=== PATIENT | female | born 1930 | race Caucasian/White ===

== ENCOUNTER → 2017-10-21 | Outpatient (CLI) | payer BC, MEDICARE ==
[~2017-10-21] MED LIST: AMLO5TAB2 PO; CALC1CAP3 PO; CHOL3000 PO; HYDR-3240 PO; LISI1TAB5 PO; ONDA4TAB12 PO; SIMV40TA3 PO
[2017-10-21 12:15] LABS: ALBUMIN 3.6 g/dL (3.4-5.0); ANION GAP 8 mmol/L (5-15); CALCIUM 10.5 mg/dL (8.5-10.1); CHLORIDE 107 mmol/L (98-107)
[2017-10-21 12:18] LABS: ALANINE AMINOTRANSFERASE 22 U/L (12-78); ALKALINE PHOSPHATASE 67 U/L (45-117); BILIRUBIN,TOTAL 0.8 mg/dL (0.2-1.0); CREATININE 0.99 mg/dL (0.55-1.02); TOTAL PROTEIN 7.3 g/dL (6.4-8.2)
== END | disposition home or self-care (01) ==
LOC: STAR 10:38
PROVIDERS: ATTEND Surgery
DX: Z01.818 Encounter for other preprocedural examination (principal)
CPT/HCPCS: 36415; 80053; 93005

== ENCOUNTER 2017-10-27 07:13 | Observation (INO) | payer BC, MEDICARE ==
[~2017-10-27] VITALS: Ht 152.4 cm; Wt 54.5 kg
[~2017-10-27 07:13] MED LIST changes: -AMLO5TAB2 PO; +AMLO5TAB7 PO; -HYDR-3240 PO; -ONDA4TAB12 PO
[2017-10-27] MEDS ORDERED: LACTATED RINGERS 1,000 ML IV SCH ×2 (07:46→19:00)
[2017-10-27 07:48] VITALS: BP 134/61
[2017-10-27] MEDS ORDERED: GABAPENTIN 300 MG CAPSULE PO ONE (08:00)
[2017-10-27] MEDS ORDERED: SCOPOLAMINE PATCH, 1.5MG PATCH.TD72 TD ONE (08:00)
[2017-10-27] MEDS ORDERED: ONDANSETRON 2MG/ML, 2ML IVPush ONE (08:00)
[2017-10-27] MEDS ORDERED: ACETAMINOPHEN 500 MG TABLET PO ONE (08:00)
[2017-10-27] MEDS ORDERED: FENTANYL PF 250 MCG/5ML ONE (08:22)
[2017-10-27] MEDS ORDERED: BUPIVACAINE/PF 0.5% ONE (09:01)
[2017-10-27] MEDS ORDERED: ISOSULFAN BLUE 10 MG/ML, 5ML IV ONE (09:01)
[2017-10-27] MEDS ORDERED: EPINEPHRINE 1 MG/ML, 1ML ONE (09:01)
[2017-10-27] MEDS ORDERED: PHENYLEPHRINE 10 MG/ML ONE (09:45)
[2017-10-27] MEDS ORDERED: PROMETHAZINE 25 MG/ML, 1ML IV PRN (10:30)
[2017-10-27] MEDS ORDERED: HYDROmorphone 1 MG/ML, 1ML IV PRN (10:30)
[2017-10-27] MEDS ORDERED: DIPHENHYDRAMINE 50 MG/ML, 1ML IM PRN (10:30)
[2017-10-27] MEDS ORDERED: FENTANYL PF 100 MCG/2ML IV PRN (10:30)
[2017-10-27] MEDS ORDERED: LABETALOL 5MG/ML, 20ML IV PRN (10:30)
[2017-10-27] MEDS ORDERED: OXYcodone 5 MG/5 ML ORAL.SOL UDC PO PRN (10:30)
[2017-10-27] MEDS ORDERED: CEFAZOLIN 1,000 MG ONE (10:46)
[2017-10-27] MEDS ORDERED: NEOSTIGMINE 1 MG/ML, 10ML ONE (10:46)
[2017-10-27] MEDS ORDERED: ROCURONIUM 10MG/ML,5ML ONE (10:46)
[2017-10-27] MEDS ORDERED: GLYCOPYRROLATE 0.2MG/1ML, 5ML ONE (10:46)
[2017-10-27] MEDS ORDERED: PROPOFOL 10 MG/ML, 20ML ONE (10:46)
[2017-10-27] MEDS ORDERED: ONDANSETRON 2MG/ML, 2ML ONE (10:46)
[2017-10-27] MEDS ORDERED: DEXAMETHASONE 4 MG/ML, 1ML ONE (10:46)
[2017-10-27] MEDS ORDERED: SUCCINYLCHOLINE 20 MG/ML, 10ML ONE (10:46)
[2017-10-27] MEDS ORDERED: OXYcodone/APAP 5/325MG TABLET PO PRN (18:30)
[2017-10-27] MEDS ORDERED: MORPHINE SULFATE 4 MG/ML, 1ML IV PRN (18:30)
[2017-10-27] MEDS ORDERED: morphine SULFATE/PF 0.5 MG/ML, 10ML IV PRN (18:30)
[2017-10-27 19:00] VITALS: BP 130/59
[2017-10-27] MEDS ORDERED: ONDANSETRON 2MG/ML, 2ML IVPush PRN (19:00)
[2017-10-27] MEDS ORDERED: MORPHINE SULFATE 4 MG/ML, 1ML IVPush PRN (19:00)
[2017-10-27] MEDS ORDERED: SIMVASTATIN 40 MG TABLET PO SCH (21:00)
[2017-10-27 23:36] VITALS: BP 105/54
[2017-10-28 04:00] VITALS: BP 106/60
[2017-10-28 07:40] VITALS: BP 108/52
[2017-10-28] MEDS ORDERED: HYDROCHLOROTHIAZIDE 12.5 MG CAPSULE PO SCH (09:00)
[2017-10-28] MEDS ORDERED: AMLODIPINE 5 MG TABLET PO SCH (09:00)
[2017-10-28] MEDS ORDERED: LISINOPRIL 20 MG TABLET PO SCH (09:00)
[2017-10-28] MEDS ORDERED: CHOLECALCIFEROL 1,000 UNIT TABLET PO SCH (09:00)
[2017-10-28] MEDS ORDERED: CALCIUM/VITAMIN D3 250-125 TABLET PO SCH (09:00)
[2017-10-28] MEDS ORDERED: ONDA4TAB12 PO (10:59)
[2017-10-28] MEDS ORDERED: HYDR-3240 PO (11:00)
[2017-10-28 13:24] VITALS: BP 105/42
== END 2017-10-28 14:39 | disposition home or self-care (01) ==
LOC: OUT 07:13 → EDSTATUS 10:00 → ORIP 18:03 → 4NOR 18:37 → DCLOUNGE 10-28 14:25
PROVIDERS: ADMIT Surgery; ATTEND Surgery
DX: D05.12 Intraductal carcinoma in situ of left breast (principal); J44.9 Chronic obstructive pulmonary disease, unspecified; I10 Essential (primary) hypertension; E78.5 Hyperlipidemia, unspecified; R32 Unspecified urinary incontinence; Z85.3 Personal history of malignant neoplasm of breast
CPT/HCPCS: 19301; 38525; 38792; 88307; 88341; 88360; 88361; A9541; G0378; J0171; J0330; J0690; J1100; J2370; J2405; J2704; J2710; J3010; J3490; J7120

== ENCOUNTER → 2017-12-21 | Outpatient (CLI) | payer MEDICARE ==
[~2017-12-21] MED LIST changes: +AMLO5TAB4 PO; +CALC200T3 PO; +HYDR-3240 PO; +MECL12.52 PO; +ONDA4TAB12 PO
== END | disposition home or self-care (01) ==
LOC: ROC 12:47
PROVIDERS: ATTEND Radiology Radiation Oncology
DX: C50.412 Malignant neoplasm of upper-outer quadrant of left female breast (principal)
CPT/HCPCS: 99214; G0463